=== PATIENT | male | born 1980 ===

== ENCOUNTER 2018-06-10 18:49 | Emergency (ER) | payer MEDICAID ==
[2018-06-10 18:50] VITALS: BMI 32.8
[2018-06-10 18:56] VITALS: BP 135/76; TEMP 99.9
--- NOTE | 2018-06-10 21:01 | ED PDOC ---
HPI: Psych/Substance Abuse Time Seen by Provider: 06/10/18 19:28 Chief Complaint (Nursing): Psychiatric Evaluation Chief Complaint (Provider): Brought by EMS - Limited eval History Per: Patient History/Exam Limitations: no limitations Onset/Duration Of Symptoms: Unknown Additional Complaint(s): 38 yo male with no medical problems presents for evaluation of alcohol abuse. Pt only answering yes or no. Pt syas no to pain, drug use. Pt states he drank alcohol. Past Medical History Reviewed: Historical Data, Nursing Documentation, Vital Signs Vital Signs: Last Vital Signs Temp 99.9 F H 06/10/18 18:53 Pulse 114 H 06/10/18 18:53 Resp 16 06/10/18 18:53 BP 135/76 06/10/18 18:53 Pulse Ox 97 06/10/18 18:53 - Medical History PMH: Asthma, Back Problems - Surgical History Surgical History: Appendectomy - Family History Family History: States: Unknown Family Hx - Living Arrangements Living Arrangements: With Family - Social History Current smoker - smoking cessation education provided: No - Immunization History Hx Tetanus Toxoid Vaccination: Yes Hx Influenza Vaccination: No Hx Pneumococcal Vaccination: Yes - Home Medications Home Medications: Ambulatory Orders Medication Instructions Recorded Albuterol 0.083% Inhal Krystin (2.5 2.5 mg INH PRN PRN 10/28/15 mg/3 ml) UD Cephalexin [Keflex] 500 mg PO BID #14 cap 10/28/15 oxyCODONE/Acetaminophen [Percocet 1 tab PO Q8 #10 tab 10/28/15 5/325 mg Tab] - Allergies Allergies/Adverse Reactions: Allergies Allergy/AdvReac Type Severity Reaction Status Date / Time carbamazepine [From Tegretol] Allergy RASH Verified 06/10/18 18:53 ketorolac [From Toradol] Allergy RASH Verified 06/10/18 18:53 peanut Allergy RASH Verified 06/10/18 18:53 tramadol Allergy RASH Verified 06/10/18 18:53 seafood Allergy RASH Uncoded 06/10/18 18:53 Review of Systems Review Of Systems: ROS cannot be obtained secondary to pt's inabilty to answer questions. Constitutional: Negative for: Fever, Chills Physical Exam - Reviewed Nursing Documentation Reviewed: Yes Vital Signs Reviewed: Yes - Physical Exam Appears: Positive for: Well, Non-toxic, No Acute Distress Head Exam: Positive for: ATRAUMATIC, NORMAL INSPECTION, NORMOCEPHALIC Skin: Positive for: Normal Color, Warm, DRY Eye Exam: Positive for: Normal appearance ENT: Positive for: Normal ENT Inspection Neck: Positive for: Normal, Painless ROM Cardiovascular/Chest: Positive for: Regular Rate, Rhythm Respiratory: Positive for: CNT, Normal Breath Sounds Back: Positive for: Normal Inspection Extremity: Positive for: Normal ROM Neurologic/Psych: Positive for: Alert, Oriented - ECG O2 Sat by Pulse Oximetry: 97 Medical Decision Making Medical Decision Makin - Pt up and out of bed. Ambulates with steady gait to the restroom. Pt reports drinking alcohol. Pt denies complaints and states he just wants to eat something. Disposition - Clinical Impression Clinical Impression: Alcohol abuse - Patient ED Disposition Is Patient to be Admitted: No Counseled Patient/Family Regarding: Diagnosis, Need For Followup - Disposition Disposition: Routine/Home Disposition Time: 21:01 Condition: STABLE Instructions: Alcohol Abuse and Alcoholism (DC)
[2018-06-10 21:07] VITALS: PULSE 93; RESP 18
[2018-06-10 21:21] VITALS: O2SAT 97
== END 2018-06-10 21:59 | disposition home or self-care (01) ==
LOC: H.ER 18:49
DX: F10.10 Alcohol abuse, uncomplicated (principal)